=== PATIENT | male | born 1990 | race Hispanic/Latino ===

== ENCOUNTER 2023-03-21 04:09 | Emergency (ER) | payer SELFPAY ==
[2023-03-21] MEDS ORDERED: predniSONE 20 MG TAB ONE (04:57)
[2023-03-21] MEDS ORDERED: Famotidine 20 MG TAB ONE (04:57)
[2023-03-21] MEDS ORDERED: diphenhydrAMINE 25 MG CAP ONE (04:57)
[2023-03-21] MEDS ORDERED: hydrOXYzine 25 MG TAB ONE (04:58)
== END 2023-03-21 06:28 | disposition home or self-care (01) ==
LOC: ERS 04:09
DX: J02.9 Acute pharyngitis, unspecified (principal); F17.200 Nicotine dependence, unspecified, uncomplicated
CPT/HCPCS: 71045; J7512

== ENCOUNTER 2023-05-03 22:47 | Emergency (ER) | payer SELFPAY ==
[2023-05-03] MEDS ORDERED: Ondansetron PF 4 MG/2 ML Vial ONE (23:30)
[2023-05-03] MEDS ORDERED: Ketorolac Tromethamine 30 MG/ML VIAL ONE (23:30)
[2023-05-03] MEDS ORDERED: Morphine 4 MG/ML VIAL ONE (23:30)
[2023-05-04 00:51] LABS: #Eosinphils 0.1 thou/uL (0.0-0.7); #Monocytes 0.5 thou/uL (0.11-0.59); #Neutrophils 3.1 thou/uL (1.40-6.50); %Basophils 0.5 % (0.0-1.0); %Eosinophils 2.5 % (0.0-10.0); %Lymphocytes 31.3 % (21.0-51.0); %Neutrophils 56.3 % (42.0-75.0); Hematocrit 38.1 % (42.0-52.0); Hemoglobin 13.4 g/dL (14.0-18.0); Mean Corpuscular HGB CONC 35.2 g/dL (32.0-36.0); Mean Corpuscular Hemoglobin 30.4 pg (27.0-31.0); Mean Corpuscular Volume 86.4 fl (78.0-98.0); Mean Platelet Volume 10.6 fL (7.4-10.4); Platelet Count 197 10x3/uL (130-400); RBC Distribution Width 11.8 % (11.5-14.5); Red Blood Cell (RBC) Count 4.41 mill/uL (4.70-6.10); White Blood Cell (WBC) Count 5.5 10x3/uL (4.8-10.8)
[2023-05-04 01:17] LABS: ALT (SGPT) 20 U/L (8-55); AST (SGOT) 18 U/L (5-34); Albumin 4.4 g/dL (3.5-5.0); Alkaline Phosphatase 70 U/L (40-110); Anion Gap 11 mmol/L (10-20); BUN (Urea Nitrogen) 7 mg/dL (8.9-20.6); Bilirubin, Total 0.7 mg/dL (0.2-1.2); Calc. Creatinine Clearance 0 mL/min (70-130); Calcium 8.6 mg/dL (7.8-10.44); Carbon Dioxide 23 mmol/L (22-29); Chloride 110 mmol/L (98-107); Estimated GFR 116; Globulin 2.6 g/dL (2.4-3.5); Glucose 104 mg/dL (70-105); Lipase 18 U/L (8-78); Potassium 3.7 mmol/L (3.5-5.1); Sodium 140 mmol/L (136-145)
[2023-05-04 01:19] LABS: Troponin I Less than 0.010 ng/mL (< 0.028)
[2023-05-04 02:16] LABS: Bilirubin Negative (Negative); Blood, Urine Negative (Negative); Glucose, Urine (Dipstick) Negative (Negative); Ketone, Urine Negative (Negative); Leukocyte Negative (Negative); Nitrite Negative (Negative); Protein, Urine (Dipstick) Negative (Neg-Trace); Urobilinogen 0.2 mg/dL (Less than 2)
[2023-05-04 02:22] LABS: Clarity Clear (Clear)
== END 2023-05-04 04:13 | disposition home or self-care (01) ==
LOC: ERS 22:47
DX: K59.00 Constipation, unspecified (principal); F17.200 Nicotine dependence, unspecified, uncomplicated
CPT/HCPCS: 36415; 74177; 80053; 81001; 83690; 84484; 85025; 93005; 96361; 96374; 96375; J1885; J2270; J2405

== ENCOUNTER 2023-06-15 20:05 | Emergency (ER) | payer SELFPAY ==
[2023-06-15 21:03] LABS: #Eosinphils 0.1 thou/uL (0.0-0.7); #Monocytes 0.4 thou/uL (0.11-0.59); #Neutrophils 3.9 thou/uL (1.40-6.50); %Basophils 0.4 % (0.0-1.0); %Eosinophils 1.5 % (0.0-10.0); %Lymphocytes 15.5 % (21.0-51.0); %Monocytes 8.2 % (0.0-10.0); %Neutrophils 74.2 % (42.0-75.0); Hematocrit 42.3 % (42.0-52.0); Hemoglobin 14.4 g/dL (14.0-18.0); Mean Corpuscular Hemoglobin 29.6 pg (27.0-31.0); Mean Platelet Volume 10.6 fL (7.4-10.4); Platelet Count 246 10x3/uL (130-400); RBC Distribution Width 11.8 % (11.5-14.5); Red Blood Cell (RBC) Count 4.86 mill/uL (4.70-6.10); White Blood Cell (WBC) Count 5.2 10x3/uL (4.8-10.8)
[2023-06-15 21:28] LABS: ALT (SGPT) 22 U/L (8-55); AST (SGOT) 16 U/L (5-34); Albumin 4.4 g/dL (3.5-5.0); Alkaline Phosphatase 79 U/L (40-110); Anion Gap 9 mmol/L (10-20); BUN (Urea Nitrogen) 11 mg/dL (8.9-20.6); Bilirubin, Total 0.7 mg/dL (0.2-1.2); Calc. Creatinine Clearance 0 mL/min (70-130); Calcium 9.1 mg/dL (7.8-10.44); Carbon Dioxide 25 mmol/L (22-29); Chloride 110 mmol/L (98-107); Estimated GFR 108; Globulin 2.9 g/dL (2.4-3.5); Glucose 113 mg/dL (70-105); Potassium 4.2 mmol/L (3.5-5.1); Protein, Total 7.3 g/dL (6.0-8.3); Sodium 140 mmol/L (136-145)
[2023-06-15] MEDS ORDERED: Lidocaine 2% Viscous Solution 10 ML, Aluminum & Magnesium Hydroxide 30 ML SSW SCH (23:15)
== END 2023-06-16 01:22 | disposition home or self-care (01) ==
LOC: ERS 20:05
DX: R13.10 Dysphagia, unspecified (principal); F17.210 Nicotine dependence, cigarettes, uncomplicated
CPT/HCPCS: 36415; 70491; 80053; 85025

== ENCOUNTER 2023-09-08 19:43 | Emergency (ER) | payer SELFPAY ==
[2023-09-08 20:12] LABS: #Eosinphils 0.2 thou/uL (0.0-0.7); #Monocytes 0.5 thou/uL (0.11-0.59); #Neutrophils 3.2 thou/uL (1.40-6.50); %Basophils 0.6 % (0.0-1.0); %Eosinophils 3.7 % (0.0-10.0); %Lymphocytes 26.4 % (21.0-51.0); %Monocytes 9.2 % (0.0-10.0); %Neutrophils 59.9 % (42.0-75.0); Hematocrit 41.2 % (42.0-52.0); Hemoglobin 14.2 g/dL (14.0-18.0); Mean Corpuscular HGB CONC 34.5 g/dL (32.0-36.0); Mean Corpuscular Hemoglobin 29.8 pg (27.0-31.0); Mean Corpuscular Volume 86.4 fl (78.0-98.0); Mean Platelet Volume 10.5 fL (7.4-10.4); Platelet Count 215 10x3/uL (130-400); RBC Distribution Width 11.9 % (11.5-14.5); Red Blood Cell (RBC) Count 4.77 mill/uL (4.70-6.10); White Blood Cell (WBC) Count 5.4 10x3/uL (4.8-10.8)
[2023-09-08 20:44] LABS: ALT (SGPT) 59 U/L (8-55); AST (SGOT) 31 U/L (5-34); Albumin 4.3 g/dL (3.5-5.0); Alkaline Phosphatase 98 U/L (40-110); Anion Gap 10 mmol/L (10-20); BUN (Urea Nitrogen) 11 mg/dL (8.9-20.6); Bilirubin, Total 0.5 mg/dL (0.2-1.2); Calc. Creatinine Clearance 0 mL/min (70-130); Calcium 8.9 mg/dL (7.8-10.44); Carbon Dioxide 24 mmol/L (22-29); Chloride 110 mmol/L (98-107); Estimated GFR 114; Globulin 2.7 g/dL (2.4-3.5); Glucose 110 mg/dL (70-105); Lipase 47 U/L (8-78); Potassium 4.3 mmol/L (3.5-5.1); Sodium 140 mmol/L (136-145); Troponin I Less than 0.010 ng/mL (< 0.028)
[2023-09-08 21:36] LABS: SARS-CoV-2 NAA Rapid Test Not Detected (NotDetected)
== END 2023-09-08 22:19 | disposition home or self-care (01) ==
LOC: ERS 19:43
DX: R07.89 Other chest pain (principal); K62.89 Other specified diseases of anus and rectum; F17.200 Nicotine dependence, unspecified, uncomplicated
CPT/HCPCS: 36415; 71045; 80053; 83690; 84484; 85025; 93005

== ENCOUNTER 2024-01-24 02:00 | Emergency (ER) | payer SELFPAY ==
[2024-01-24] MEDS ORDERED: Ketorolac Tromethamine 30 MG (1 mL) VIAL ONE (02:25)
[2024-01-24 02:52] LABS: #Basophils 0.03 10x3/uL (0.0-0.2); %Basophils 0.5 % (0.0-1.0); %Eosinophils 2.5 % (0.0-10.0); %Lymphocytes 32.6 % (21.0-51.0); %Monocytes 10.8 % (0.0-10.0); %Neutrophils 53.3 % (42.0-75.0); Hematocrit 41.1 % (42.0-52.0); Hemoglobin 14.1 g/dL (14.0-18.0); Mean Corpuscular HGB CONC 34.3 g/dL (32.0-36.0); Mean Corpuscular Hemoglobin 29.9 pg (27.0-31.0); Mean Corpuscular Volume 87.3 fL (78.0-98.0); Mean Platelet Volume 11.7 fL (7.4-10.4); Platelet Count 258 10x3/uL (130-400); RBC Distribution Width 11.9 % (11.5-14.5); Red Blood Cell (RBC) Count 4.71 mill/uL (4.70-6.10)
[2024-01-24] MEDS ORDERED: Famotidine/PF 20 mg/2ml Vial ONE (03:00)
[2024-01-24] MEDS ORDERED: Lidocaine 2% Viscous 10 mL, Alum & Magn 30 mL SSW SCH (03:00)
[2024-01-24 03:05] LABS: ALT (SGPT) 28 U/L (8-55); AST (SGOT) 23 U/L (5-34); Albumin 4.1 g/dL (3.5-5.0); Alkaline Phosphatase 89 U/L (40-110); Anion Gap 11 mmol/L (10-20); BUN (Urea Nitrogen) 18 mg/dL (8.9-20.6); Bilirubin, Total 0.8 mg/dL (0.2-1.2); Calc. Creatinine Clearance 0 mL/min (70-130); Calcium 9.1 mg/dL (7.8-10.44); Carbon Dioxide 21 mmol/L (22-29); Chloride 112 mmol/L (98-107); Estimated GFR 115; Globulin 3.3 g/dL (2.4-3.5); Glucose 93 mg/dL (70-105); INR-International Normal Ratio 0.9; Lipase 21 U/L (8-78); Magnesium 2.1 mg/dL (1.6-2.6); Potassium 3.9 mmol/L (3.5-5.1); Protein, Total 7.4 g/dL (6.0-8.3); Prothrombin Time 12.5 sec (12.0-14.7); Sodium 140 mmol/L (136-145)
[2024-01-24 03:06] LABS: PTT 28.5 sec (22.9-36.1)
[2024-01-24 03:10] LABS: Troponin I Less than 0.010 ng/mL (< 0.028)
[2024-01-24 04:57] LABS: Bacteria/HPF None Seen HPF (None Seen); Bilirubin Negative (Negative); Blood, Urine Negative (Negative); Clarity Clear (Clear); Glucose, Urine (Dipstick) Normal (Negative); Ketone, Urine Negative (Negative); Leukocyte Negative Leu/uL (Negative); Nitrite Negative (Negative); Protein, Urine (Dipstick) 20 mg/dL (Neg-Trace); RBC/HPF 0-3 HPF (0-3); Squamous Epithelial 0-3 HPF (0-3); Urobilinogen Normal mg/dL (Less than 2); WBC/HPF None Seen HPF (0-3)
[2024-01-24 04:58] LABS: Specific Gravity, Urine Greater than 1.060 (1.002-1.036)
[2024-01-24 04:59] LABS: Urine Culture Reflex No No
[2024-01-24] MEDS ORDERED: Iopamidol-370 76% 500 ML MDV (1 ML CHARGE) ONE (10:11)
== END 2024-01-24 06:22 | disposition home or self-care (01) ==
LOC: ERS 02:00
DX: K21.9 Gastro-esophageal reflux disease without esophagitis (principal); E86.0 Dehydration
CPT/HCPCS: 71045; 71275; 74177; 80053; 81001; 83690; 83735; 83880; 84443; 84484; 85025; 85610; 85730; 93005; 96374; 96375; J1885; Q9967; S0028

== ENCOUNTER 2024-04-11 01:02 | Emergency (ER) | payer SELFPAY ==
[2024-04-11 02:11] LABS: Bacteria/HPF None Seen HPF (None Seen); Bilirubin Negative (Negative); Blood, Urine Negative (Negative); CAUTI Indications for Culture Acute Hematuria; Clarity Clear (Clear); Glucose, Urine (Dipstick) Normal (Negative); Ketone, Urine Negative (Negative); Leukocyte Negative Leu/uL (Negative); Nitrite Negative (Negative); Protein, Urine (Dipstick) Negative (Neg-Trace); RBC/HPF 0-3 HPF (0-3); Specific Gravity, Urine 1.009 (1.002-1.036); Squamous Epithelial None Seen HPF (0-3); Urobilinogen Normal mg/dL (Less than 2); WBC/HPF 0-3 HPF (0-3); pH, Urine 5.5 (5.0-9.0)
[2024-04-11 02:17] LABS: Urine Culture Reflex No No
[2024-04-11] MEDS ORDERED: Ketorolac Tromethamine 30 MG (1 mL) VIAL ONE (02:30)
[2024-04-11] MEDS ORDERED: Ondansetron PF 4 MG/2 ML Vial ONE (02:30)
[2024-04-11] MEDS ORDERED: Famotidine/PF 20 mg/2ml Vial ONE (02:31)
[2024-04-11 02:48] LABS: #Basophils 0.05 10x3/uL (0.0-0.2); %Basophils 0.9 % (0.0-1.0); %Eosinophils 4.3 % (0.0-10.0); %Lymphocytes 28.1 % (21.0-51.0); %Monocytes 9.6 % (0.0-10.0); %Neutrophils 56.8 % (42.0-75.0); Hematocrit 38.7 % (42.0-52.0); Hemoglobin 13.5 g/dL (14.0-18.0); Mean Corpuscular HGB CONC 34.9 g/dL (32.0-36.0); Mean Corpuscular Hemoglobin 30.3 pg (27.0-31.0); Mean Corpuscular Volume 86.8 fL (78.0-98.0); Mean Platelet Volume 10.6 fL (7.4-10.4); Platelet Count 217 10x3/uL (130-400); RBC Distribution Width 11.8 % (11.5-14.5); Red Blood Cell (RBC) Count 4.46 mill/uL (4.70-6.10)
[2024-04-11 03:04] LABS: ALT (SGPT) 39 U/L (8-55); AST (SGOT) 24 U/L (5-34); Alkaline Phosphatase 98 U/L (40-110); Anion Gap 10 mmol/L (10-20); BUN (Urea Nitrogen) 10 mg/dL (8.9-20.6); Bilirubin, Total 0.5 mg/dL (0.2-1.2); Calc. Creatinine Clearance 0 mL/min (70-130); Calcium 8.7 mg/dL (7.8-10.44); Carbon Dioxide 21 mmol/L (22-29); Chloride 111 mmol/L (98-107); Estimated GFR 99; Globulin 3.4 g/dL (2.4-3.5); Glucose 106 mg/dL (70-105); Lipase 23 U/L (8-78); Potassium 3.4 mmol/L (3.5-5.1); Protein, Total 7.4 g/dL (6.0-8.3); Sodium 139 mmol/L (136-145)
== END 2024-04-11 06:04 | disposition home or self-care (01) ==
LOC: ERS 01:02
DX: K80.50 Calculus of bile duct without cholangitis or cholecystitis without obstruction (principal); K82.8 Other specified diseases of gallbladder; K21.9 Gastro-esophageal reflux disease without esophagitis; F17.210 Nicotine dependence, cigarettes, uncomplicated; Z79.899 Other long term (current) drug therapy
CPT/HCPCS: 76705; 80053; 81001; 83690; 85025; 96361; 96374; 96375; J1885; J2405; J3490

== ENCOUNTER 2024-05-12 23:09 | Inpatient (IN) | payer SELFPAY ==
[2024-05-12 23:34] LABS: #Basophils 0.04 10x3/uL (0.0-0.2); %Basophils 0.5 % (0.0-1.0); %Eosinophils 3.6 % (0.0-10.0); %Lymphocytes 30.5 % (21.0-51.0); %Monocytes 9.8 % (0.0-10.0); %Neutrophils 55.5 % (42.0-75.0); Hematocrit 40.7 % (42.0-52.0); Mean Corpuscular HGB CONC 34.4 g/dL (32.0-36.0); Mean Corpuscular Hemoglobin 29.8 pg (27.0-31.0); Mean Corpuscular Volume 86.6 fL (78.0-98.0); Mean Platelet Volume 10.4 fL (7.4-10.4); Platelet Count 221 10x3/uL (130-400); RBC Distribution Width 11.7 % (11.5-14.5)
[2024-05-12 23:48] LABS: ALT (SGPT) 42 U/L (8-55); AST (SGOT) 25 U/L (5-34); Albumin 4.1 g/dL (3.5-5.0); Alkaline Phosphatase 112 U/L (40-110); Anion Gap 11 mmol/L (10-20); BUN (Urea Nitrogen) 12 mg/dL (8.9-20.6); Bilirubin, Total 0.7 mg/dL (0.2-1.2); Calc. Creatinine Clearance 0 mL/min (70-130); Calcium 8.8 mg/dL (7.8-10.44); Carbon Dioxide 22 mmol/L (22-29); Chloride 109 mmol/L (98-107); Estimated GFR 111; Globulin 3.4 g/dL (2.4-3.5); Glucose 102 mg/dL (70-105); Potassium 3.7 mmol/L (3.5-5.1); Protein, Total 7.5 g/dL (6.0-8.3); Sodium 138 mmol/L (136-145)
[2024-05-12] MEDS ORDERED: Ondansetron PF 4 MG/2 ML Vial ONE (23:56)
[2024-05-12] MEDS ORDERED: Ketorolac Tromethamine 30 MG (1 mL) VIAL ONE (23:56)
[2024-05-13 00:08] LABS: Bacteria/HPF None Seen HPF (None Seen); Bilirubin Negative (Negative); Blood, Urine Negative (Negative); CAUTI Indications for Culture Dysuria,urgency,freq; Clarity Clear (Clear); Glucose, Urine (Dipstick) Normal (Negative); Ketone, Urine Negative (Negative); Leukocyte Negative Leu/uL (Negative); Nitrite Negative (Negative); Protein, Urine (Dipstick) Negative (Neg-Trace); RBC/HPF None Seen HPF (0-3); Specific Gravity, Urine 1.027 (1.002-1.036); Squamous Epithelial None Seen HPF (0-3); Urobilinogen Normal mg/dL (Less than 2); WBC/HPF 0-3 HPF (0-3); pH, Urine 5.5 (5.0-9.0)
[2024-05-13 00:10] LABS: Urine Culture Reflex No No
[2024-05-13 00:12] LABS: Amphetamine Not Detected (NotDetected); Barbiturates Screen Not Detected (NotDetected); Benzodiazepine Screen Not Detected (NotDetected); Cocaine Metabolite Screen Not Detected (NotDetected); Methadone Not Detected (NotDetected); Methamphetamine Not Detected (NotDetected); Opiate Screen Not Detected (NotDetected); Oxycodone Screen Not Detected (NotDetected); Phencyclidine (PCP) Not Detected (NotDetected); THC/Cannabinoid Screen Not Detected (NotDetected); Tricyclic Screen Not Detected (NotDetected)
[2024-05-13 00:18] LABS: Lipase 21 U/L (8-78)
[2024-05-13 00:20] LABS: Acetaminophen Less than 10 mcg/mL (Less than 10); Alcohol Less than 10.0 mg/dL (Less than 10); Salicylate Less than 8.0 mg/dL (Less than 8.0)
[2024-05-13 00:22] LABS: Troponin I Less than 0.010 ng/mL (< 0.028)
[2024-05-13] MEDS ORDERED: Morphine 4 MG/ML VIAL ONE (03:23)
[2024-05-13] MEDS ORDERED: Dextrose 5% in Water 1,000 ML IV PRN (03:41)
[2024-05-13] MEDS ORDERED: Calcium Carbonate 500 MG ChewTAB PO PRN (03:41)
[2024-05-13] MEDS ORDERED: Mag-Al 1200 mg/1200 mg/30 ML UDCUP PO PRN (03:41)
[2024-05-13] MEDS ORDERED: Acetaminophen 325 MG TAB PO PRN (03:41)
[2024-05-13] MEDS ORDERED: Dextrose 50% Abboject 50 ML SYRINGE SLOW IVP PRN (03:41)
[2024-05-13] MEDS ORDERED: Morphine 4 MG/ML VIAL SLOW IVP PRN (03:41)
[2024-05-13] MEDS ORDERED: Glucagon 1 MG/ML KIT IM PRN (03:41)
[2024-05-13] MEDS ORDERED: Ondansetron PF 4 MG/2 ML Vial IVP PRN (03:41)
[2024-05-13] MEDS ORDERED: HYDROcodone/Acetaminophen 7.5/325 mg Tablet PO PRN (03:44)
[2024-05-13] MEDS ORDERED: Mag-Al 1200 mg/1200 mg/30 ML UDCUP ONE (04:44)
[2024-05-13] MEDS ORDERED: Lidocaine Viscous Sol 2% 15 ml UD Cup ONE (04:44)
[2024-05-13] MEDS: Lactated Ringer's 1,000 ML IV SCH ×2 (05:35→20:59)
[2024-05-13 05:41] VITALS: BMI 30.8
[2024-05-13] MEDS: Famotidine 20 MG TAB PO SCH (08:19)
[2024-05-14 15:48] LABS: ALT (SGPT) 330 U/L (8-55); AST (SGOT) 191 U/L (5-34); Albumin 3.5 g/dL (3.5-5.0); Alkaline Phosphatase 185 U/L (40-110); Anion Gap 16 mmol/L (10-20); BUN (Urea Nitrogen) 6 mg/dL (8.9-20.6); Bilirubin, Total 4.6 mg/dL (0.2-1.2); Calc. Creatinine Clearance 166 mL/min (70-130); Calcium 8.8 mg/dL (7.8-10.44); Carbon Dioxide 12 mmol/L (22-29); Chloride 112 mmol/L (98-107); Estimated GFR 117; Globulin 3.2 g/dL (2.4-3.5); Glucose 77 mg/dL (70-105); Potassium 4.2 mmol/L (3.5-5.1); Protein, Total 6.7 g/dL (6.0-8.3); Sodium 136 mmol/L (136-145)
[2024-05-14 17:53] LABS: #Basophils 0.03 10x3/uL (0.0-0.2); %Basophils 0.7 % (0.0-1.0); %Eosinophils 3.2 % (0.0-10.0); %Lymphocytes 21.5 % (21.0-51.0); %Monocytes 6.6 % (0.0-10.0); %Neutrophils 67.8 % (42.0-75.0); Mean Corpuscular HGB CONC 34.1 g/dL (32.0-36.0); Mean Platelet Volume 10.8 fL (7.4-10.4); Platelet Count 206 10x3/uL (130-400); RBC Distribution Width 11.9 % (11.5-14.5)
[2024-05-14] MEDS ORDERED: Piperacillin/Tazobactam 3.375 GM in Sodium Chloride 0.9% 100 ML IVPB SCH (18:00)
[2024-05-14] MEDS: Sodium Chloride 0.9% 1,000 ML IV SCH (18:10)
[2024-05-14] MEDS: Piperacillin/Tazobactam 3.375 GM in Sodium Chloride 0.9% 100 ML IVPB SCH ×2 (18:10→22:01)
[2024-05-15 07:20] LABS: ALT (SGPT) 300 U/L (8-55); AST (SGOT) 145 U/L (5-34); Albumin 3.6 g/dL (3.5-5.0); Alkaline Phosphatase 171 U/L (40-110); Anion Gap 13 mmol/L (10-20); BUN (Urea Nitrogen) 8 mg/dL (8.9-20.6); Bilirubin, Total 2.6 mg/dL (0.2-1.2); Calc. Creatinine Clearance 135 mL/min (70-130); Calcium 8.6 mg/dL (7.8-10.44); Carbon Dioxide 18 mmol/L (22-29); Chloride 110 mmol/L (98-107); Estimated GFR 99; Globulin 3.6 g/dL (2.4-3.5); Glucose 81 mg/dL (70-105); Lipase 18 U/L (8-78); Potassium 4.1 mmol/L (3.5-5.1); Protein, Total 7.2 g/dL (6.0-8.3); Sodium 137 mmol/L (136-145)
[2024-05-15] MEDS: Polyethylene Glycol 3350 17 GM Packet PO SCH (07:51)
[2024-05-15] MEDS ORDERED: Iopamidol 30 ML ONE (11:27)
[2024-05-15] MEDS ORDERED: Indomethacin 50 MG SUPP ONE (11:28)
[2024-05-15] MEDS ORDERED: fentaNYL PF 100 MCG/2 ML SYRINGE ONE ×2 (11:41→13:15)
[2024-05-15] MEDS ORDERED: Lidocaine 2% PF 5 ML VIAL ONE (11:41)
[2024-05-15] MEDS ORDERED: Dexamethasone 20 MG/5 ML VIAL ONE (11:41)
[2024-05-15] MEDS ORDERED: Rocuronium Bromide 10 MG/ML (10ML VIAL) ONE (11:41)
[2024-05-15] MEDS ORDERED: PROPOFOL 20 ML ONE (11:41)
[2024-05-15] MEDS ORDERED: Ondansetron PF 4 MG/2 ML Vial ONE (11:41)
[2024-05-15] MEDS ORDERED: SUCCINYLCHOLINE/SOD CL,ISO/PF 200 MG/10 ML SYRINGE FS ONE (11:41)
[2024-05-15] MEDS ORDERED: Midazolam HCl 2 mg/2 ml Vial ONE (11:42)
[2024-05-15] MEDS ORDERED: PHENYLEPHRINE-NS 100 MCG/ML 10 ML SYRINGE ONE (11:42)
[2024-05-15] MEDS ORDERED: SUGAMMADEX SODIUM 200 MG/2 ML VIAL ONE (11:47)
[2024-05-15] MEDS: Ketorolac Tromethamine 30 MG (1 mL) VIAL IVP PRN (19:00)
[2024-05-16] MEDS: Acetaminophen 500 MG TAB PO SCH (08:27)
[2024-05-16 09:09] LABS: ALT (SGPT) 404 U/L (8-55); AST (SGOT) 249 U/L (5-34); Albumin 3.8 g/dL (3.5-5.0); Alkaline Phosphatase 203 U/L (40-110); Anion Gap 13 mmol/L (10-20); BUN (Urea Nitrogen) 8 mg/dL (8.9-20.6); Bilirubin, Total 3.9 mg/dL (0.2-1.2); Calc. Creatinine Clearance 141 mL/min (70-130); Carbon Dioxide 23 mmol/L (22-29); Chloride 108 mmol/L (98-107); Estimated GFR 104; Globulin 3.8 g/dL (2.4-3.5); Glucose 102 mg/dL (70-105); Lipase 36 U/L (8-78); Potassium 4.1 mmol/L (3.5-5.1); Protein, Total 7.6 g/dL (6.0-8.3); Sodium 140 mmol/L (136-145)
[2024-05-16] MEDS: Ketorolac Tromethamine 30 MG (1 mL) VIAL IVP SCH (11:50)
[2024-05-16] MEDS ORDERED: Lidocaine 1% PF 5 ML VIAL ONE ×2 (12:44→13:41)
[2024-05-16] MEDS ORDERED: PROPOFOL 20 ML ONE (12:44)
[2024-05-16] MEDS ORDERED: fentaNYL PF 100 MCG/2 ML SYRINGE ONE (12:44)
[2024-05-16] MEDS ORDERED: Rocuronium Bromide 10 MG/ML (10ML VIAL) ONE (12:44)
[2024-05-16] MEDS ORDERED: Bupivacaine PF 0.5% 30 ML VIAL ONE (13:08)
[2024-05-16] MEDS: Lactated Ringer's 1,000 ML IV SCH (13:17)
[2024-05-16] MEDS ORDERED: Sodium Chloride 0.9% 100 ML ONE (13:25)
[2024-05-16] MEDS ORDERED: Piperacillin/Tazobactam 3.375 GM VIAL ONE (13:25)
[2024-05-16] MEDS ORDERED: Dexamethasone 20 MG/5 ML VIAL ONE (14:12)
[2024-05-16] MEDS ORDERED: Ondansetron PF 4 MG/2 ML Vial ONE (14:12)
[2024-05-16] MEDS ORDERED: SUGAMMADEX SODIUM 200 MG/2 ML VIAL ONE (14:13)
[2024-05-16] MEDS ORDERED: Promethazine HCl 25 MG/ML VIAL IM PRN (14:17)
[2024-05-16] MEDS ORDERED: Ondansetron HCl/PF 4 MG/2 ML Vial IVP PRN (14:17)
[2024-05-16] MEDS ORDERED: fentaNYL 50 mcg/mL 1 mL Vial ONE ×3 (14:40→14:52)
[2024-05-16] MEDS: traMADol HCl 50 MG TAB PO PRN (16:15)
[2024-05-16] MEDS: Ibuprofen 600 MG TAB PO PRN (17:52)
[2024-05-17 09:04] LABS: ALT (SGPT) 397 U/L (8-55); AST (SGOT) 210 U/L (5-34); Albumin 3.5 g/dL (3.5-5.0); Alkaline Phosphatase 170 U/L (40-110); Bilirubin, Direct 1.1 mg/dL (0.1-0.3); Bilirubin, Total 2.1 mg/dL (0.2-1.2)
[2024-05-17 11:27] VITALS: BP 124/75; TEMP 98.1
== END 2024-05-17 15:10 | disposition home or self-care (01) | DRG 418 ==
LOC: ERS 23:09 → SURG B 05-13 03:34 → OBSVTOIN 05-14 16:51
PROVIDERS: ADMIT Surgery; ATTEND Internal Medicine
PROC: 0F798ZZ Dilation of Common Bile Duct, Via Natural or Artificial Opening Endoscopic (ICD-10-PCS; principal; 2024-05-15)
PROC: 0FT44ZZ Resection of Gallbladder, Percutaneous Endoscopic Approach (ICD-10-PCS; 2024-05-16)
DX: K80.47 Calculus of bile duct with acute and chronic cholecystitis with obstruction (principal); E87.20 Acidosis, unspecified; K21.9 Gastro-esophageal reflux disease without esophagitis; Z98.890 Other specified postprocedural states; F17.210 Nicotine dependence, cigarettes, uncomplicated; K59.09 Other constipation; Z79.899 Other long term (current) drug therapy
CPT/HCPCS: 36415; 74330; 76705; 78227; 80053; 80076; 80306; 80307; 81001; 83690; 84484; 85025; 88304; 93005; 96374; 96375; A9537; C1889; G0378; J0665; J1100; J1885; J2250; J2272; J2405; J2543; J2704; J3010; J7030; J7120; Q9967

== ENCOUNTER 2024-08-17 10:30 | Emergency (ER) | payer SELFPAY ==
[2024-08-17] MEDS ORDERED: Ketorolac Tromethamine 30 MG (1 mL) VIAL ONE (11:56)
[2024-08-17 13:52] LABS: #Basophils 0.04 10x3/uL (0.0-0.2); %Basophils 0.5 % (0.0-1.0); %Eosinophils 2.3 % (0.0-10.0); %Lymphocytes 20.2 % (21.0-51.0); %Monocytes 7.3 % (0.0-10.0); %Neutrophils 69.3 % (42.0-75.0); Hematocrit 42.4 % (42.0-52.0); Hemoglobin 14.6 g/dL (14.0-18.0); Mean Corpuscular HGB CONC 34.4 g/dL (32.0-36.0); Mean Corpuscular Hemoglobin 29.7 pg (27.0-31.0); Mean Corpuscular Volume 86.4 fL (78.0-98.0); Mean Platelet Volume 11.4 fL (7.4-10.4); Platelet Count 221 10x3/uL (130-400); RBC Distribution Width 11.9 % (11.5-14.5); Red Blood Cell (RBC) Count 4.91 mill/uL (4.70-6.10)
[2024-08-17 14:14] LABS: ALT (SGPT) 33 U/L (Less than 45); AST (SGOT) 35 U/L (11-34); Alkaline Phosphatase 111 U/L (40-110); Anion Gap 13 mmol/L (10-20); BUN (Urea Nitrogen) 12 mg/dL (8.9-20.6); Bilirubin, Total 0.3 mg/dL (0.3-1.2); Calc. Creatinine Clearance 0 mL/min (70-130); Calcium 8.6 mg/dL (7.8-10.44); Carbon Dioxide 19 mmol/L (22-29); Chloride 110 mmol/L (98-107); Estimated GFR 82; Globulin 3.5 g/dL (2.4-3.5); Glucose 98 mg/dL (70-105); Potassium 4.3 mmol/L (3.5-5.1); Protein, Total 7.5 g/dL (6.0-8.3); Sodium 138 mmol/L (136-145)
[2024-08-17 14:18] LABS: Troponin I Less than 0.010 ng/mL (< 0.028)
== END 2024-08-17 16:05 | disposition home or self-care (01) ==
LOC: ERS 10:30
DX: J06.9 Acute upper respiratory infection, unspecified (principal); F17.210 Nicotine dependence, cigarettes, uncomplicated
CPT/HCPCS: 36415; 71046; 80053; 84484; 85025; 87428; 93005; 96372; J1885

== ENCOUNTER 2025-02-16 15:14 | Emergency (ER) | payer SELFPAY ==
[~2025-02-16 15:14] MED LIST: Iopamidol-370 76% 500 ML MDV (1 ML CHARGE) ONE
[2025-02-16 16:32] LABS: #Basophils 0.03 10x3/uL (0.0-0.2); #Eosinophils 0.06 10x3/uL (0.0-0.7); #Monocytes 0.58 10x3/uL (0.11-0.59); #Neutrophils 4.76 10x3/uL (1.40-6.50); %Basophils 0.4 % (0.0-1.0); %Eosinophils 0.9 % (0.0-10.0); %Lymphocytes 21.9 % (21.0-51.0); %Monocytes 8.3 % (0.0-10.0); %Neutrophils 68.1 % (42.0-75.0); Hematocrit 40.6 % (42.0-52.0); Hemoglobin 13.8 g/dL (14.0-18.0); Mean Corpuscular Hemoglobin 29.9 pg (27.0-31.0); Mean Corpuscular Volume 87.9 fL (78.0-98.0); Platelet Count 237 10x3/uL (130-400); Red Blood Cell (RBC) Count 4.62 mill/uL (4.70-6.10); White Blood Cell (WBC) Count 6.99 10x3/uL (4.8-10.8)
[2025-02-16 16:54] LABS: ALT (SGPT) 27 U/L (Less than 45); AST (SGOT) 23 U/L (11-34); Albumin 4.2 g/dL (3.1-4.5); Alkaline Phosphatase 98 U/L (40-110); Anion Gap 12 mmol/L (10-20); BUN (Urea Nitrogen) 12 mg/dL (8.9-20.6); Bilirubin, Total 0.7 mg/dL (0.3-1.2); Calc. Creatinine Clearance 0 mL/min (70-130); Calcium 8.4 mg/dL (7.8-10.44); Carbon Dioxide 19 mmol/L (22-29); Chloride 110 mmol/L (98-107); Globulin 3.2 g/dL (2.4-3.5); Glucose 86 mg/dL (70-105); Lipase 19 U/L (8-78); Potassium 3.9 mmol/L (3.5-5.1); Sodium 137 mmol/L (136-145)
[2025-02-16 16:57] LABS: Troponin I Less than 0.010 ng/mL (< 0.028)
== END 2025-02-16 18:58 | disposition home or self-care (01) ==
LOC: ERS 15:14
DX: R07.9 Chest pain, unspecified (principal); F17.210 Nicotine dependence, cigarettes, uncomplicated
CPT/HCPCS: 36415; 71045; 71275; 74174; 80053; 83690; 84484; 85025; 93005; 96374; J2270; Q9967

== ENCOUNTER 2025-02-25 03:32 | Emergency (ER) | payer SELFPAY ==
[2025-02-25] MEDS ORDERED: Mag-Al 1200 mg/1200 mg/30 ML UDCUP ONE (04:06)
[2025-02-25] MEDS ORDERED: Lidocaine Viscous Sol 2% 15 ml UD Cup ONE (04:07)
== END 2025-02-25 05:08 | disposition left against medical advice (07) ==
LOC: ERS 03:32
DX: Z53.21 Procedure and treatment not carried out due to patient leaving prior to being seen by health care provider (principal)